=== PATIENT | male | born 1975 | race Two or more races ===

== ENCOUNTER 2021-01-01 12:51 | Emergency (ER) | payer OTHER ==
[~2021-01-01] VITALS: Ht 170.2 cm; Wt 56.7 kg
[~2021-01-01 12:51] MED LIST: APETIGEN PLUS120 ML PO; ASPIRIN81 MG; CLONAZEPAM0.5 MG; PROTONIX40 MG PO; TORADOL30 MG IM; VISTARIL50 MG PO; ZANTAC150 M3
== END 2021-01-01 20:00 | disposition home or self-care (01) ==
LOC: ER 12:51
DX: R10.32 Left lower quadrant pain (principal)

== ENCOUNTER 2022-07-01 16:08 | Emergency (ER) | payer OTHER ==
[~2022-07-01] VITALS: Ht 170.2 cm; Wt 54.4 kg
== END 2022-07-01 21:10 | disposition home or self-care (01) ==
LOC: ER 16:08
DX: S23.41XA Sprain of ribs, initial encounter (principal); Z88.6 Allergy status to analgesic agent